=== PATIENT | male | born 1960 | race Caucasian/White ===

== ENCOUNTER 2018-06-18 14:46 | Emergency (ER) | END 2018-06-18 17:32 | disposition home or self-care (01) ==

== ENCOUNTER 2018-11-17 09:43 | Day surgery (SDC) | payer OTHER ==
[2018-11-15 17:11] VITALS: BMI 24.5
[2018-11-17] VITALS (17 sets, daily range): BP systolic 139–170; BP diastolic 79–95; PULSE 56–88; RESP 16–22
[~2018-11-17 09:43] MED LIST: CEFAZOLIN 2 GM/50 ML (PMX) 50 ML IVPB SCH
--- NOTE | 2018-11-17 12:48 | HPN ---
Date/Time of Note Date/Time of Note DATE: 11/17/18 TIME: 12:48 Interval H&P Admission Note Pt. seen H&P reviewed: No system changes RODGER BASS Nov 17, 2018 12:48
--- NOTE | 2018-11-17 13:01 | PREAC ---
Date/Time of Note Date/Time of Note DATE: 11/17/18 TIME: 13:00 Anesthesia Eval and Record Evaluation Time Pre-Procedure Interview DATE: 11/17/18 TIME: 13:00 Age 57 Sex male NPO: 8 hrs Preoperative diagnosis Rt Hydrocele Planned procedure Rt hydrocelectomy Past Medical History Past Medical History: None Surgery & Anesthesia Issues No known issue Meds Anticoagulation: No Beta Joelle within 24 hr: No Reason Beta Joelle not given: Pt. not on B-Joelle No Active Prescriptions or Reported Meds Current Medications Cefazolin Sodium/ Dextrose 50 ml @ 100 mls/hr PRE-OP IVPB ; Start 11/17/18 at 06:00; Stop 11/17/18 at 15:00 Meds reviewed: Yes Allergies Coded Allergies: No Known Allergy (Unverified , 11/17/18) Allergies Reviewed: Yes Labs/Studies Labs Reviewed: Reviewed by anesthesiologist test: N/A Studies: ECG Pre-procedure Exam Last vitals Vital Signs Date Temp Pulse Resp B/P (MAP) Pulse Ox O2 O2 Flow FiO2 Time Delivery Rate 11/17/18 98.1 61 16 139/92 96 Room Air 10:29 (108) Airway: Adequate mouth opening, Adequate thyromental dist Mallampati: Mallampati II Teeth: Normal Lung: Normal Heart: Normal ASA Physical Status ASA physical status: 2 Emergency: None Planned Anesthetic General/MAC: LMA Planned Pain Management Parenteral pain med Pre-operative Attestations Prior to commencing anesthesia and surgery, the patient was re-evaluated, there was verification of: *The patient's identity *The results of appropriate recent lab work and preoperative vital signs *The above evaluation not changing prior to induction *Anesthetic plan, risk benefits, alternative and complications discussed with patient/family; questions answered; patient/family understands, accepts and wishes to proceed. THOMAS MCKAY MD Nov 17, 2018 13:01
[2018-11-17] MEDS ORDERED: FENTAnyl 50 MCG/ML VIAL ONE ×2 (13:10→13:46)
[2018-11-17] MEDS ORDERED: MIDAZOLAM 1 MG/ML 2 ML INJ ONE (13:10)
[2018-11-17] MEDS ORDERED: CIPROFLOXACIN 400MG/D5W 200 ML ONE (13:19)
[2018-11-17] MEDS ORDERED: BUPIVACAINE 0.25% (MPF) 30 ML INJ ONE (13:22)
[2018-11-17] MEDS ORDERED: CEFAZOLIN 1 GM INJ ONE (14:03)
[2018-11-17] MEDS ORDERED: PROPOFOL 20 ML ONE (14:03)
[2018-11-17] MEDS ORDERED: LIDOCAINE 2% (SDV) 5 ML INJ ONE (14:03)
[2018-11-17] MEDS ORDERED: ONDANSETRON 4 MG INJ ONE (14:04)
--- NOTE | 2018-11-17 14:20 | PAC ---
Date/Time of Note Date/Time of Note DATE: 11/17/18 TIME: 14:19 Post-Anesthesia Notes Post-Anesthesia Note Last documented vital signs Vital Signs Date Temp Pulse Resp B/P (MAP) Pulse Ox O2 O2 Flow FiO2 Time Delivery Rate 11/17/18 98.1 61 16 139/92 96 Room Air 10:29 (108) Activity: WNL Respiratory function: WNL Cardiovascular function: WNL Mental status: Baseline Pain reasonably controlled: Yes Hydration appropriate: Yes Nausea/Vomiting absent: Yes Comments BP:128/78, P:78, Spo2:100%, T:98,8 THOMAS MCKAY MD Nov 17, 2018 14:20
--- NOTE | 2018-11-17 14:24 | PDOCDIS ---
Discharge Instructions DIAGNOSIS Discharge Diagnosis Spermatocele and hydrocele CONDITION [id number] Patient Condition: [id number] Good HOME CARE INSTRUCTIONS: [id number] Diet Instructions: [id number] Regular ACTIVITY: [id number] Activity Restrictions: Wjpzq2t Slowly Increase Activity [id number] Bathing Restrictions: Blnnv8h Shower FOLLOW UP/APPOINTMENTS Follow-up Plan Follow up next week for removal of drain REFERRALS Sherrill Referring Provider: RODGER Alvarez OTHER ORDERS: Other Orders: Keep scrotum dry no sexual activity may change dressing as needed there is a drain under the dressing RODGER BASS Nov 17, 2018 14:24
--- NOTE | 2018-11-17 14:26 | OPR ---
Date/Time of Note Date/Time of Note DATE: 11/17/18 TIME: 14:24 Operative Report Procedure Date: Nov 17, 2018 Preoperative Diagnosis right hydrocele and spermatocele Postoperative Diagnosis same Operation/Procedure Performed right hydrocelectomy and spermatocelectomy Surgeon valentina Site Physician none Anesthesia Type: general Estimated Blood Loss: minimal Transfusion none Specimen tinca vaginalis and spermatocele Grafts/Implants none Tubes/Drains 1/4 inch nic drain Complications none Pt Condition Post Procedure: stable Disposition: PACU Indications hydrocele and spermatocele Procedure Description dict [id number] RODGER BASS Nov 17, 2018 14:26
[2018-11-17] MEDS ORDERED: DIPHENHYDRAMINE 50 MG INJ IV PRN (14:30)
[2018-11-17] MEDS ORDERED: OXYCODONE/ACETAMINOPHEN (5/325) TAB PO PRN ×2 (14:30)
[2018-11-17] MEDS ORDERED: ONDANSETRON 4 MG INJ IV PRN (14:30)
[2018-11-17] MEDS ORDERED: hydrALAzine 20 MG INJ IV PRN (14:30)
[2018-11-17] MEDS ORDERED: HYDROmorphONE 1 MG/5 ML IV SYRINGE IV PRN ×2 (14:30)
[2018-11-17] MEDS ORDERED: FENTAnyl 50 MCG/ML VIAL IV PRN (14:30)
[2018-11-17] MEDS ORDERED: MEPERIDINE 25 MG INJ IV PRN (14:30)
[2018-11-17] MEDS ORDERED: METOCLOPRAMIDE 10 MG INJ IV PRN (14:30)
[2018-11-17] MEDS ORDERED: LABETALOL HCL 20MG INJ IV PRN (14:30)
--- NOTE | 2018-11-17 17:35 | OPR ---
DATE OF OPERATION: 11/17/2018 PREOPERATIVE DIAGNOSES: Right hydrocele and spermatocele. POSTOPERATIVE DIAGNOSES: Right hydrocele and spermatocele. PROCEDURES: Right hydrocelectomy and spermatocelectomy. SURGEON: Rodger Chen MD ANESTHESIA: General. COMPLICATIONS: None. ESTIMATED BLOOD LOSS: Less than 5 mL. FINDINGS: Large right hydrocele and spermatocele. DRAINS: A 0.25-inch Burton drain. DESCRIPTION OF PROCEDURE: The patient was brought into the operating room and placed on the operatin g table in supine position. He was prepped and draped in the usual fashion after anesthesia was mad[place] regina. A timeout was undertaken. Appropriate pressure points were padded. He received preoperative a ntibiotic therapy. Sequential compression devices were applied and a timeout was undertaken. Physic al examination demonstrates a very large right hemiscrotal mass which displaces the left testicle. A transverse incision was created on the anterior aspect of the right hemiscrotum through the scrotal wall down to the tunica vaginalis. The tunica vaginalis was then on its avascular plane, w hich allowed for deliverance of the very large cystic mass. On the anterior aspect of the tunica vag inalis, an incision was created which allowed for drainage of 650 mL of clear fluid. The incision wa s then widened and exposure of the testicle. The testicle was identified, but noted that the tunica vaginalis was exceedingly thickened making it somewhat difficult to visualize the cord structures and thus only a limited portion of the tunica vaginalis was removed on the anterior aspect which was fel t to be far away from the testicle, epididymis and cord structure. The head of the epididymis was no rola to be detached from the testicle. The cystic structure was identified. A 5 mm spermatocele was identified and subsequently excised. Pinpoint hemostasis was obtained. The tunica vaginalis was the n everted and reapproximated with a running stitch of 3-0 chromic suture after pinpoint hemostasis wa s obtained. The testicle was noted to have excellent blood supply without any compromise. The pinpo int hemostasis on the scrotal wall was appreciated and a subsequent 5 mm dependent incision was creat ed which allowed for 0.25-inch Abhishek drain to be placed and attached to skin with a 0 silk suture. The testicle was repositioned back into the scrotum in its normal anatomical position and the wound was closed in 2 layers. The first layer was closed with a running stitch of 3-0 Vicryl suture and th en the skin edges were reapproximated with interrupted 3-0 chromic suture. The sponge and needle cou nts were correct. The sterile dressing, fluffs and scrotal support were applied. He was transferred to recovery room in stable condition and will be discharged home on [place] one tab p.o. q.6 austen rs p.r.n., dispense #[id number], no refill. He will follow up next week for his removal of drain and reevalu ation. Dictated By: RODGER KAPLAN/NTS Conf#: [id number] DID#: [id number]
== END 2018-11-17 17:05 | disposition home or self-care (01) ==
LOC: SDS 09:43
PROVIDERS: ATTEND Urology
DX: N43.3 Hydrocele, unspecified (principal); N43.40 Spermatocele of epididymis, unspecified; N40.0 Benign prostatic hyperplasia without lower urinary tract symptoms
CPT/HCPCS: 55040; 88304; J0690; J1170; J2250; J2405; J3010; Z7512; Z7610; J0744